=== PATIENT | male | born 1945 | race Caucasian/White ===

== ENCOUNTER → 2018-01-20 | Outpatient (CLI) | payer MEDICARE ==
--- NOTE | 2018-01-20 10:56 | US ---
EXAMINATION TYPE: US abdomen comp/pelvis limited DATE OF EXAM: 01/20/2018 COMPARISON: CT abdomen and pelvis 2009 CLINICAL HISTORY: R07.82 INTERCOSTAL PAIN,M54.5 LOW BACK PAIN. Pt states lower right side ABD pain EXAM MEASUREMENTS: Liver Length: 15.8 cm Gallbladder Wall: 0.3 cm CBD: 0.3 cm Spleen: 10.8 cm Right Kidney: 12.6 x 5.0 x 5.5 cm Left Kidney: 12.6 x 5.9 x 4.4 cm Pancreas: Obscured by bowel gas Liver: Increased attenuation Gallbladder: wnl CBD: wnl Spleen: Accessory spleen= 1.1 x 0.9 x 1.0 cm Right Kidney: No evidence of hydro, hypoechoic lesion lower pole= 0.5 cm Left Kidney: No evidence of hydro, 1.0 cm cyst at mid, Hypoechoic lesion upper pole= 2.1 x 1.8 x 1.8 cm Upper IVC: wnl Abd Aorta: Proximal portion gassed out, mid and distal <3cm, wall calcifications at distal portion Bladder: wnl Bilateral Jets Seen Yes Bladder is well-distended without intraluminal mass or wall thickening. Bilateral distal ureter jets are seen. Pancreas is suboptimally seen on images saved secondary to shadowing from overlying bowel gas per jose hnologist. Visualized aorta shows no aneurysmal change. IVC is visualized near hepatic dome. Visualized liver is heterogeneously hyperechoic without intrahepatic ductal dilatation. Evaluation fo r focal masses is slightly suboptimal due to the heterogeneity. Common bile duct measures within norm al limits. Gallbladder is seen without shadowing mobile gallstones. Technologist hoffman nonspecific 5 mm lesion lower pole level right kidney too small to further charact erize. Technologist hoffman 1.8 cm round hypoechoic anechoic lesion upper pole level left kidney likely reflecting simple exophytic cyst which likely corresponds to lesion on CT axial image 29 series 2. T echnologist hoffman smaller 1.0 cm simple appearing cyst centrally in left kidney. Heterogeneous spleno megaly is now identified measuring 15.8 cm on long axis with 1.0 cm splenule in splenic hilum redemon strated. IMPRESSION: No suspicious acute finding is seen to account for patient's symptoms. New splenomegaly n oted which may warrant further clinical workup.
== END ==
LOC: RADUSWWP 09:16
PROVIDERS: ATTEND Family Medicine
DX: R16.1 Splenomegaly, not elsewhere classified (principal)
CPT/HCPCS: 76700; 76857

== ENCOUNTER → 2021-11-11 | Outpatient (CLI) | payer MEDICARE ==
--- NOTE | 2021-11-11 15:05 | CT ---
EXAMINATION TYPE: CT abdomen pelvis wo con CT DLP: 831.7 mGycm, Automated exposure control for dose reduction was used. DATE OF EXAM: 11/11/2021 2:41 PM COMPARISON: None CLINICAL INDICATION:Male, 76 years old with history of R10.9 Abd pain; c/o flank pain TECHNIQUE: Standard CT of the abdomen and pelvis without IV or oral contrast. Lack of IV or oral co ntrast limits evaluation of solid and hollow organ viscera. Coronal and sagittal reformats were perfo rmed. FINDINGS: LOWER CHEST: There is mitral valve annular cusp patient's as well as coronary artery atherosclerosis. ABDOMEN LIVER: Unremarkable GALLBLADDER AND BILE DUCTS: Unremarkable. PANCREAS: Unremarkable. SPLEEN: Unremarkable. ADRENAL GLANDS: Unremarkable. KIDNEYS AND URETERS: No evidence of hydronephrosis or renal calculus. Left superior renal cyst PELVIS BLADDER: Unremarkable REPRODUCTIVE: Unremarkable. ABDOMEN & PELVIS STOMACH AND BOWEL: No evidence of bowel obstruction. PERITONEUM: No evidence of pneumoperitoneum or free fluid. VASCULATURE: No evidence of aortic aneurysm. Scattered atherosclerosis throughout the arterial vascul ature. MUSCULOSKELETAL: No acute osseous abnormalities. Multilevel disc degeneration changes throughout the spine. LYMPH NODES: No gross evidence for lymphadenopathy. SOFT TISSUE/ABDOMINAL WALL: Fat filled inguinal hernia on the left. Small fat filled umbilical hernia . IMPRESSION: 1. No evidence for acute intra-abdominal process to explain the patient's pain. No hydronephrosis or renal calculi identified. 2. Moderate coronary artery atherosclerosis. 3. Moderate mitral valve annular calcifications.
== END | disposition home or self-care (01) ==
LOC: RADCTMAIN 12:40
PROVIDERS: ATTEND Family Medicine
DX: I25.10 Atherosclerotic heart disease of native coronary artery without angina pectoris (principal)
CPT/HCPCS: 74176

== ENCOUNTER → 2022-11-04 | Outpatient (CLI) | payer MEDICARE ==
--- NOTE | 2022-11-04 18:47 | MR ---
EXAMINATION TYPE: MR thoracic spine wo con DATE OF EXAM: 11/04/2022 4:41 PM COMPARISON: No priors. INDICATION: Patient age:Male; 77 years old; Reason for study: M54.6. 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 The patient was not given Gadolinium. IV Contrast: None FINDINGS: The thoracic vertebral bodies have preserved heights and alignment. The osseous structure have normal signal intensity. Thoracic spinal cord appears unremarkable. Mild multilevel disc degeneration haider es with osteophyte formation and disc space narrowing. Facet joint arthropathy seen throughout spine. . Scattered disc desiccation is present. * T7-T8 osteophyte with mild narrowing of the ventral subarachnoid space. The spinal canal and neura l foramen are patent. * T8-T9 left central osteophyte with mild narrowing of the ventral subarachnoid space. The spinal ca nal and neural foramen are patent. The remainder of the levels are patent. IMPRESSION: No evidence for significant spinal canal or neural foraminal stenosis. No abnormal bony edema within the spine.
== END | disposition home or self-care (01) ==
LOC: RADMRIMAIN 15:23
PROVIDERS: ATTEND Family Medicine
DX: M54.6 Pain in thoracic spine (principal)
CPT/HCPCS: 72146

== ENCOUNTER → 2023-07-26 | Outpatient (CLI) | payer MEDICARE ==
[2023-07-26 15:23] LABS: African American GFR (CKD) 57 (>60 ml/min/1.73 sqM); Blood Urea Nitrogen 21 mg/dL (9-20); Non-African American GFR(CKD) 50 (>60 ml/min/1.73 sqM)
--- NOTE | 2023-07-26 17:25 | CT ---
EXAMINATION TYPE: CT abdomen pelvis w con DATE OF EXAM: 07/26/2023 COMPARISON: 11/11/2021 HISTORY: abd pain/ CT DLP: 1658.6 mGycm Automated exposure control for dose reduction was used. TECHNIQUE: Helical acquisition of images was performed from the lung bases through the pelvis. CONTRAST: Performed with Oral Contrast and with IV Contrast, patient injected with 80ml mL of Isovue 300. FINDINGS: The lung bases are clear.. The gallbladder is normal without distention, wall thickening, pericholecystic fluid or gallstones. T here is no biliary ductal dilatation. There is no focal mass or organomegaly involving the liver, pancreas, spleen or adrenal glands. There is no solid renal mass or hydronephrosis and there is homogeneous contrast enhancement of the r enal parenchyma. The caliber the abdominal aorta is normal is no retroperitoneal adenopathy or hemorr jarod. The bowel loops are normal in caliber and there is no evidence of dilatation or obstruction. No infla mmatory changes are identified in the bowel wall or mesentery. There is no free intraperitoneal air or fluid. No pelvic mass, free fluid, abscess or adenopathy. There is mild prostatic hypertrophy. The osseous structures and soft tissues are intact. IMPRESSION: Mild prostatic hypertrophy with no other significant abnormality seen.
== END | disposition home or self-care (01) ==
LOC: RADCTMAIN 14:35
PROVIDERS: ATTEND Family Medicine
DX: N40.0 Benign prostatic hyperplasia without lower urinary tract symptoms (principal)
CPT/HCPCS: 82565; 84520; 74177; 36415; Q9967